=== PATIENT | female | born 1965 | race Caucasian/White ===

== ENCOUNTER → 2023-07-31 | Outpatient (CLI) | payer OTHER, SELFPAY ==
--- NOTE | 2023-07-31 09:48 | EKG12_ITS ---
Test Reason : PRE OP Blood Pressure : / mmHG Vent. Rate : 064 BPM Atrial Rate : 064 BPM P-R Int : 126 ms QRS Dur : 064 ms QT Int : 396 ms P-R-T Axes : 060 013 088 degrees QTc Int : 408 ms Normal sinus rhythm Low voltage QRS Borderline ECG Confirmed by CANDIDO ORDOÑEZ, MICKY ([id number]), news copy editor JUANA DIAZ ([id number]) on 08/02/2023 1:53:25 PM Referred By: KEIRA Confirmed By:MICKY REY MD
== END | disposition home or self-care (01) ==
LOC: SDC 09:47 → PAT 08-24 08:10
PROVIDERS: PCP Family Medicine; Visit Provider Plastic Surgery
DX: Z01.810 Encounter for preprocedural cardiovascular examination (principal)
CPT/HCPCS: 93005